=== PATIENT | female | born 1975 | race Caucasian/White ===

== ENCOUNTER 2016-10-28 09:55 | Day surgery (SDC) | payer OTHER ==
[~2016-10-28 09:55] MED LIST: ACETAMINOPHEN 500 MG TABLET PO PRN; HYDROmorphone HCL 2 MG/ML VIAL IV PRN; MAG HYDROX/ALUMINUM HYD/SIMETH 30 ML UDC PO PRN; MAGNESIUM HYDROXIDE 30 ML UDC PO PRN; ONDANSETRON HCL/PF 2 MG/ML VIAL IV PRN; PROMETHAZINE HCL 25 MG in DEXTROSE 5 % IN WATER 50 ML IV PRN; RINGERS SOLUTION,LACTATED 1,000 ML IV PRN; ZOLPIDEM TARTRATE 5 MG TABLET PO PRN; ceFAZolin SODIUM 1 GM VIAL IV PRN; diphenhydrAMINE HCL 50 MG/ML VIAL IV PRN; oxyCODONE HCL/ACETAMINOPHEN 1 TAB TABLET PO PRN
--- OUTSIDE RECORDS SUMMARY | 2016-10-28 10:00 | XMS REPORT | Continuity of Care Document ---
:1975 Author Organization [facility] ([facility]) Address [address] [place] [address] Phone [phone] Care Team Providers Name Role Phone Unavailable Primary Care Provider Unavailable Source Comments This disclosure is being made pursuant to the Care Everywhere program, applicable federal and state laws, and may not contain all informaitonavailable regarding this patient.[facility] ([facility]) Active Allergies and Adverse Reactions Allergen Noted Date Severity Reactions Comments Codeine Nausea & Vomiting Current Medications Not on file Active Problems Not on file Social History Tobacco Use Types Packs/Day Years Used Date Never Assessed Last Filed Vital Signs Vital Sign Reading Time Taken Blood Pressure 136/85 11/12/2003 1:42 PM CDT Pulse 95 11/12/2003 1:42 PM CDT Temperature 35.7 C (96.26 F) 11/12/2003 1:42 PM CDT Respiratory Rate - - Height - - Weight 55.997 kg (123 lb 7.2 oz) 11/12/2003 1:42 PM CDT Body Mass Index - - Oxygen Saturation - - Plan of Care Health Maintenance Due Date Last Done Comments Hepatitis B Vaccine (1 of 3 - Primary Series) 1974 Tdap Vaccine 1985 Lipid Disorder Screening 1992 MMR Vaccine 1992 Td Vaccine 1992 Cervical Cancer Screening 2004 Mammogram 2014 Influenza Vaccine: Seasonal (#1) 01/19/2016 Results from Last 3 Months Not on file
[2016-10-28] MEDS: RINGERS SOLUTION,LACTATED 1,000 ML IV PRN ×2 (10:40→13:35)
[2016-10-28] MEDS ORDERED: PROMETHAZINE HCL 12.5 MG in DEXTROSE 5 % IN WATER 50 ML IV PRN ×2 (12:33)
[2016-10-28] MEDS ORDERED: diphenhydrAMINE HCL 50 MG/ML VIAL IV PRN (12:33)
[2016-10-28] MEDS ORDERED: HYDROmorphone HCL 2 MG/ML VIAL IV PRN (12:33)
[2016-10-28] MEDS ORDERED: NALOXONE HCL 0.4 MG/ML VIAL IV PRN (12:33)
[2016-10-28] MEDS ORDERED: ONDANSETRON HCL/PF 2 MG/ML VIAL IV PRN (12:33)
[2016-10-28] MEDS ORDERED: HYDROmorphone HCL 2 MG/ML VIAL IV ONE (12:34)
[2016-10-28] MEDS ORDERED: HYDROmorphone HCL 4 MG/ML DISP.SYRIN IV ONE ×2 (12:35→12:45)
--- NOTE | 2016-10-28 12:37 | OR ---
Operative Report - Dictated Report Narrative: Date: 10/28/2016 Surgeon: Kevin Rodriguez M.D. Community Resource Consultant: Zia Hemphill RN Anesthesia: General plus regional anesthesia Preoperative diagnosis: Right displaced medial malleolus fracture. Postoperative diagnosis: Right displaced medial malleolus fracture. Procedure: 1. Open reduction internal fixation right displaced medial malleolus fracture. 2. Intra-operative interpretation of radiographs. Estimated blood loss: None Tourniquet time: 60 Minutes at 325 millimeters mercury Retained implants: [employer] 4.0 mm cannulated partially threaded cancellous screws in the medial malleolus x 2 Specimens: None Complications: None Indications: Mrs. Alvarado is a 40-year-old female who was unloading a large stack of steel posts when a coworker cut one of the bands holding the posts together and the posts fell and struck her right ankle resulting in a displaced fracture of the medial malleolus. They were seen in the emergency department with images obtained revealing the above injury and temporarily placed in a cam walker. They were seen in clinic where the skin was examined and felt to be amenable to surgical treatment. The risks, benefits, and treatment options were discussed with the patient and the plan for reduction internal fixation was discussed. Risks were reviewed including , blood clots, nerve/tendon/blood vessel injury, malunion, nonunion, failure of implants, prominent implants, arthrosis, persistent pain, need for additional procedures, and DVT/PE. Procedure: After a timeout, regional anesthesia was performed by the anesthesia provider without complication. General anesthesia was then induced without complication. A bone foam lamp was utilized to bump the operative leg and a well-padded tourniquet was applied to the operative thigh. The leg was pre- scrubbed with chlorhexidine then prepped and draped in a standard sterile fashion. Extremity was exsanguinated and tourniquet was inflated. Attention was turned to the medial malleolus. Curvilinear incision was made over the anterior medial aspect of the distal tibia. Care was taken to protect the saphenous vein and nerve. The medial malleolus fracture was identified and the soft tissues elevated off the bony edges. Hematoma was evacuated from the fracture site. The joint was visualized and there appeared to be no significant chondral damage. The joint was thoroughly irrigated. Preliminary fixation with a reduction clamp was placed across the fracture of the medial malleolus and anatomic reduction was confirmed via fluoroscopy as well as direct visualization of the anterior aspect of the articular surface. We placed 2 parallel guidewires from the tip of the medial malleolus paralleling the anterior distal tibia within the confines of the distal tibial bone, these were measured drilled and sequentially placed two 4.0 x 50 mm partially- threaded cannulated cancellous screws. This gave good stabilizations the medial malleolus fracture. The ankle was in place a range of motion and had no significant crepitance. The syndesmosis was stressed and was noted to be stable. The mortise was symmetrical and intact. The wounds were then thoroughly irrigated. The deltoid ligament tissue was repaired over the implants utilizing 0 Vicryl. The skin was closed in a layered fashion using 4- 0 Vicryl in an interrupted deep dermal fashion followed by running 4-0 nylon. Xeroform, 4 x 4's, soft roll, and a well-padded AO splint was applied. Patient was then awoken and transferred to postanesthesia care in stable condition. All sponge, sharp, and instrument counts were correct prior to closing the wounds.
[2016-10-28 15:33] VITALS: BP 112/72
[2016-10-28] MEDS ORDERED: SENNOSIDES/DOCUSATE SODIUM 1 TAB TABLET PO SCH (21:00)
== END 2016-10-28 09:56 | disposition home or self-care (01) ==
LOC: AMB 09:55
PROVIDERS: ATTEND Orthopaedic Surgery
PROC: 0QSG04Z Reposition Right Tibia with Internal Fixation Device, Open Approach (ICD-10-PCS; principal; 2016-10-28 10:00)
DX: S82.51XA Displaced fracture of medial malleolus of right tibia, initial encounter for closed fracture (principal); K21.9 Gastro-esophageal reflux disease without esophagitis; F17.200 Nicotine dependence, unspecified, uncomplicated; Z68.22 Body mass index [BMI] 22.0-22.9, adult; W22.8XXA Striking against or struck by other objects, initial encounter; Y99.0 Civilian activity done for income or pay